=== PATIENT | female | born 1950 | race African-American/Black ===

== ENCOUNTER 2020-08-23 13:32 | Inpatient (IN) | payer OTHER, MEDICARE, MEDICAID ==
[~2020-08-23] VITALS: Ht 162.6 cm; Wt 106.1 kg
[2020-08-23] MEDS ORDERED: SODIUM CHLORIDE 0.9% 1,000 ML IV ONE ×2 (13:45→15:45)
[2020-08-23 14:49] LABS: BASOPHILS % 0.6 % (0.0-2.0); EOSINOPHILS % 3.4 % (0.0-5.0); HEMATOCRIT. 30.3 % (36.0-48.0); HEMOGLOBIN. 9.8 g/dL (12.0-16.0); LYMPHOCYTES % 9.8 % (20.0-50.0); MEAN CORPUSCULAR HEMOGLOBIN 27.1 pg (28.0-32.0); MEAN PLATELET VOLUME 9.6 fl (7.4-10.4); MONOCYTES % 8.1 % (2.0-8.0); NEUTROPHILS % 78.1 % (40.0-76.0); PLATELET 95 x1000/uL (130-400); RED BLOOD CELL COUNT 3.61 mill/uL (4.2-5.4); RED CELL DISTRIBUTION WIDTH 18.4 % (11.6-14.6)
[2020-08-23 14:58] LABS: INR 1.2; PROTHROMBIN TIME 12.9 sec (9.6-11.0)
[2020-08-23 14:59] LABS: CLARITY URINE CLEAR (CLEAR); COLOR URINE YELLOW (YELLOW); KETONES URINE NEGATIVE (NEGATIVE); LEUKOCYTE ESTERASE URINE 2+ (NEGATIVE); NITRITE URINE NEGATIVE (NEGATIVE); OCCULT BLOOD URINE NEGATIVE (NEGATIVE); PROTEIN URINE NEGATIVE (NEGATIVE); SPECIFIC GRAVITY URINE 1.021 (1.005-1.030); UROBILINOGEN URINE 0.2 E.U./dL (0.2-1.0)
[2020-08-23 15:03] LABS: CHLORIDE 114 mEq/L (98-107)
[2020-08-23] MEDS ORDERED: CEFTRIAXONE 1 G PREMIX 50 ML IV ONE (15:45)
[2020-08-23] MEDS ORDERED: GUAIFENESIN 200MG/10ML SUGAR FREE UDC PO PRN (18:45)
[2020-08-23] MEDS ORDERED: CLONIDINE 0.1MG TABLET PO PRN (18:45)
[2020-08-23] MEDS ORDERED: IPRATROPIUM/ALBUTEROL 0.5-3(2.5)MG/3ML NEB HHN PRN (18:45)
[2020-08-23] MEDS ORDERED: DOCUSATE SODIUM 100MG CAPSULE PO PRN (18:45)
[2020-08-23] MEDS ORDERED: MAGNESIUM/ALUMINUM HYDROXIDE/SIMETHICONE 30ML UDC PO PRN (18:45)
[2020-08-23] MEDS ORDERED: HYDROCODONE/ACETAMINOPHEN 5/325MG TABLET PO PRN (18:45)
[2020-08-23] MEDS ORDERED: ONDANSETRON HCL 4MG/2ML INJ IV PRN (18:45)
[2020-08-23] MEDS ORDERED: ENOXAPARIN 40MG/0.4ML SYR SUBCUT SCH (21:00)
[2020-08-23] MEDS: DEXTROSE 5% WATER 1,000 ML IV SCH (23:44)
[2020-08-23] MEDS: PIPERACILLIN/TAZ 3.375G PREMIX 50 ML IV SCH (23:44)
[2020-08-23] MEDS ORDERED: ENOXAPARIN 100MG/ML SYR SUBCUT SCH (23:45)
[2020-08-24] MEDS: PIPERACILLIN/TAZ 3.375G PREMIX 50 ML IV SCH ×3 (02:00→15:13)
[2020-08-24] MEDS: HYDROMORPHONE HCL/PF 2MG/ML CPJ IV PRN ×4 (02:20→18:21)
[2020-08-24 04:01] LABS: CHLORIDE 116 mEq/L (98-107)
[2020-08-24 04:06] LABS: BASOPHILS % 0.5 % (0.0-2.0); EOSINOPHILS % 3.6 % (0.0-5.0); HEMATOCRIT. 27.1 % (36.0-48.0); HEMOGLOBIN. 8.6 g/dL (12.0-16.0); LYMPHOCYTES % 12.9 % (20.0-50.0); MEAN CORPUSCULAR HEMOGLOBIN 26.8 pg (28.0-32.0); MEAN PLATELET VOLUME 9.2 fl (7.4-10.4); PLATELET 92 x1000/uL (130-400); RED BLOOD CELL COUNT 3.19 mill/uL (4.2-5.4); RED CELL DISTRIBUTION WIDTH 18.2 % (11.6-14.6)
[2020-08-24 04:10] LABS: LDL CHOLESTEROL 101 mg/dL (5-100)
[2020-08-24 04:11] LABS: HDL CHOLESTEROL 42 mg/dL (40-59)
[2020-08-24] MEDS: DEXTROSE 5% WATER 1,000 ML IV SCH ×2 (08:06→20:48)
[2020-08-24] MEDS: ENOXAPARIN 120MG/0.8ML SYR SUBCUT SCH ×2 (11:00→12:29)
[2020-08-24 11:30] VITALS: BP 144/53
[2020-08-24 16:26] VITALS: BP 118/55
[2020-08-24 16:33] VITALS: BP 149/53
[2020-08-24] MEDS ORDERED: PREG200C PO (17:29)
[2020-08-24] MEDS ORDERED: OSIM80TA PO (17:29)
[2020-08-24] MEDS ORDERED: HYDR-4135 MT (17:29)
[2020-08-24] MEDS ORDERED: DIAZ10TA4 PO (17:29)
[2020-08-24] MEDS ORDERED: PANT40TA51 PO (17:29)
[2020-08-24] MEDS ORDERED: TRIA1TAB92 PO (17:29)
[2020-08-24] MEDS ORDERED: METO25TA6 PO (17:29)
[2020-08-24 20:00] VITALS: BP 135/66
[2020-08-24] MEDS: PIPERACILLIN/TAZOBACTAM 3.375 G in DEXT 5% WATER 100 ML IV SCH (20:46)
[2020-08-24] MEDS: HYDRALAZINE HCL 50MG TABLET PO SCH (21:03)
[2020-08-25] VITALS: BP 131/68
[2020-08-25] MEDS: HYDROMORPHONE HCL/PF 2MG/ML CPJ IV PRN ×5 (01:39→21:46)
[2020-08-25] MEDS: PIPERACILLIN/TAZOBACTAM 3.375 G in DEXT 5% WATER 100 ML IV SCH ×4 (02:00→20:26)
[2020-08-25 03:06] VITALS: BP_SYST 141
[2020-08-25] MEDS: HYDRALAZINE HCL 50MG TABLET PO SCH ×3 (05:56→21:45)
[2020-08-25 07:28] LABS: BASOPHILS % 0.4 % (0.0-2.0); EOSINOPHILS % 4.1 % (0.0-5.0); HEMATOCRIT. 26.1 % (36.0-48.0); HEMOGLOBIN. 8.5 g/dL (12.0-16.0); LYMPHOCYTES % 14.7 % (20.0-50.0); MEAN CORPUSCULAR HEMOGLOBIN 27.1 pg (28.0-32.0); MEAN PLATELET VOLUME 9.7 fl (7.4-10.4); MONOCYTES % 9.7 % (2.0-8.0); NEUTROPHILS % 71.1 % (40.0-76.0); PLATELET 82 x1000/uL (130-400); RED BLOOD CELL COUNT 3.14 mill/uL (4.2-5.4); RED CELL DISTRIBUTION WIDTH 18.1 % (11.6-14.6)
[2020-08-25 08:17] VITALS: BP 114/73
[2020-08-25] MEDS: PANTOPRAZOLE 40MG DR TABLET PO SCH (09:35)
[2020-08-25] MEDS: METOPROLOL TARTRATE 25MG TABLET PO SCH (09:35)
[2020-08-25] MEDS: TRIAMTERENE/HYDROCHLOROTHIAZID 75/50MG TABLET PO SCH (09:36)
[2020-08-25] MEDS: DEXTROSE 5% WATER 1,000 ML IV SCH (11:21)
[2020-08-25] MEDS ORDERED: POTASSIUM CHLORIDE 20MEQ TABLET SR PO NR (12:00)
[2020-08-25 12:07] VITALS: BP 130/57
[2020-08-25] MEDS ORDERED: IOHEXOL-350 100 ML BOTTLE ONE (14:43)
[2020-08-25 16:22] VITALS: BP 114/60
[2020-08-25 20:00] VITALS: BP 131/62
[2020-08-26] VITALS: BP 113/54
[2020-08-26] MEDS: DEXTROSE 5% WATER 1,000 ML IV SCH ×2 (00:05→13:57)
[2020-08-26] MEDS: HYDROMORPHONE HCL/PF 2MG/ML CPJ IV PRN ×5 (02:48→20:36)
[2020-08-26] MEDS: PIPERACILLIN/TAZOBACTAM 3.375 G in DEXT 5% WATER 100 ML IV SCH ×4 (02:50→20:37)
[2020-08-26 04:00] VITALS: BP 124/56
[2020-08-26] MEDS: HYDRALAZINE HCL 50MG TABLET PO SCH ×3 (06:09→21:06)
[2020-08-26 07:07] LABS: BASOPHILS % 0.2 % (0.0-2.0); EOSINOPHILS % 5.2 % (0.0-5.0); HEMATOCRIT. 27.1 % (36.0-48.0); HEMOGLOBIN. 8.9 g/dL (12.0-16.0); LYMPHOCYTES % 17.5 % (20.0-50.0); MEAN CORPUSCULAR HEMOGLOBIN 27.1 pg (28.0-32.0); MEAN CORPUSCULAR VOLUME 82.8 fL (81.0-99.0); MEAN PLATELET VOLUME 9.6 fl (7.4-10.4); MONOCYTES % 9.4 % (2.0-8.0); NEUTROPHILS % 67.7 % (40.0-76.0); PLATELET 91 x1000/uL (130-400); RED BLOOD CELL COUNT 3.28 mill/uL (4.2-5.4); RED CELL DISTRIBUTION WIDTH 18.1 % (11.6-14.6)
[2020-08-26 07:54] LABS: CHLORIDE 108 mEq/L (98-107)
[2020-08-26 08:00] VITALS: BP 127/60
[2020-08-26] MEDS: PANTOPRAZOLE 40MG DR TABLET PO SCH (09:24)
[2020-08-26] MEDS: TRIAMTERENE/HYDROCHLOROTHIAZID 75/50MG TABLET PO SCH (09:24)
[2020-08-26] MEDS: METOPROLOL TARTRATE 25MG TABLET PO SCH (09:24)
[2020-08-26 12:00] VITALS: BP 147/80
[2020-08-26] MEDS ORDERED: POTASSIUM CHLORIDE 20MEQ TABLET SR PO NR (15:45)
[2020-08-26 16:00] VITALS: BP 153/85
[2020-08-26 20:00] VITALS: BP 131/68
[2020-08-27] VITALS: BP 122/61
[2020-08-27] MEDS: PIPERACILLIN/TAZOBACTAM 3.375 G in DEXT 5% WATER 100 ML IV SCH ×4 (03:18→20:59)
[2020-08-27] MEDS: DEXTROSE 5% WATER 1,000 ML IV SCH ×2 (03:18→17:35)
[2020-08-27 04:00] VITALS: BP 112/66
[2020-08-27] MEDS: HYDROMORPHONE HCL/PF 2MG/ML CPJ IV PRN ×5 (05:45→22:35)
[2020-08-27] MEDS: HYDRALAZINE HCL 50MG TABLET PO SCH ×3 (05:45→21:00)
[2020-08-27 08:00] VITALS: BP 129/77
[2020-08-27] MEDS: TRIAMTERENE/HYDROCHLOROTHIAZID 75/50MG TABLET PO SCH (08:29)
[2020-08-27] MEDS: PANTOPRAZOLE 40MG DR TABLET PO SCH (08:30)
[2020-08-27] MEDS: METOPROLOL TARTRATE 25MG TABLET PO SCH (08:30)
[2020-08-27] MEDS: APIXABAN 5 MG TABLET PO SCH ×2 (10:31→17:31)
[2020-08-27 12:00] VITALS: BP 151/87
[2020-08-27 16:00] VITALS: BP 108/52
[2020-08-27 20:00] VITALS: BP 122/66
[2020-08-27] MEDS: IPRATROPIUM/ALBUTEROL 0.5-3(2.5)MG/3ML NEB HHN SCH (21:18)
[2020-08-28] VITALS: BP 134/68
[2020-08-28] MEDS: HYDROMORPHONE HCL/PF 2MG/ML CPJ IV PRN ×4 (02:10→21:25)
[2020-08-28] MEDS: IPRATROPIUM/ALBUTEROL 0.5-3(2.5)MG/3ML NEB HHN SCH ×4 (02:59→21:10)
[2020-08-28] MEDS: PIPERACILLIN/TAZOBACTAM 3.375 G in DEXT 5% WATER 100 ML IV SCH ×3 (03:09→15:03)
[2020-08-28 04:00] VITALS: BP 120/55
[2020-08-28] MEDS: HYDRALAZINE HCL 50MG TABLET PO SCH ×3 (06:14→21:25)
[2020-08-28] MEDS: DEXTROSE 5% WATER 1,000 ML IV SCH ×2 (06:14→19:05)
[2020-08-28 08:04] VITALS: BP 120/51
[2020-08-28] MEDS: METOPROLOL TARTRATE 25MG TABLET PO SCH (10:33)
[2020-08-28] MEDS: PANTOPRAZOLE 40MG DR TABLET PO SCH (10:34)
[2020-08-28] MEDS: TRIAMTERENE/HYDROCHLOROTHIAZID 75/50MG TABLET PO SCH (10:34)
[2020-08-28] MEDS: APIXABAN 5 MG TABLET PO SCH ×2 (10:35→17:33)
[2020-08-28 11:45] VITALS: BP 120/63
[2020-08-28] MEDS: POTASSIUM CHLORIDE 20MEQ TABLET SR PO SCH ×2 (12:52→17:33)
[2020-08-28 15:19] VITALS: BP 107/71
[2020-08-28 20:00] VITALS: BP 102/47
[2020-08-28] MEDS ORDERED: HYDROMORPHONE HCL/PF 2MG/ML CPJ IV PRN (20:30)
[2020-08-29] VITALS: BP 153/88
[2020-08-29] MEDS: IPRATROPIUM/ALBUTEROL 0.5-3(2.5)MG/3ML NEB HHN SCH ×3 (01:55→12:00)
[2020-08-29] MEDS: HYDROMORPHONE HCL/PF 2MG/ML CPJ IV PRN ×5 (03:30→23:44)
[2020-08-29 04:00] VITALS: BP 116/50
[2020-08-29] MEDS: HYDRALAZINE HCL 50MG TABLET PO SCH ×3 (06:18→21:02)
[2020-08-29 07:26] LABS: CHLORIDE 106 mEq/L (98-107)
[2020-08-29 07:50] LABS: FOLIC ACID (FOLATE) SERUM 5.5 ng/mL (>5.38)
[2020-08-29 08:00] VITALS: BP 122/56
[2020-08-29] MEDS: POTASSIUM CHLORIDE 20MEQ TABLET SR PO SCH ×2 (08:03→17:17)
[2020-08-29] MEDS: APIXABAN 5 MG TABLET PO SCH ×2 (08:03→17:17)
[2020-08-29] MEDS: PANTOPRAZOLE 40MG DR TABLET PO SCH (08:03)
[2020-08-29] MEDS: DEXTROSE 5% WATER 1,000 ML IV SCH ×2 (08:07→21:02)
[2020-08-29] MEDS: METOPROLOL TARTRATE 25MG TABLET PO SCH (08:19)
[2020-08-29] MEDS: TRIAMTERENE/HYDROCHLOROTHIAZID 75/50MG TABLET PO SCH (08:19)
[2020-08-29 12:00] VITALS: BP 112/57
[2020-08-29] MEDS: CYANOCOBALAMIN 1000MCG/ML VIAL IM SCH (13:29)
[2020-08-29 16:07] VITALS: BP 117/55
[2020-08-29 20:00] VITALS: BP 127/61
[2020-08-29] MEDS: ACETAMINOPHEN 325MG TABLET PO PRN (21:02)
[2020-08-30] VITALS: BP 106/48
[2020-08-30] MEDS: HYDROMORPHONE HCL/PF 2MG/ML CPJ IV PRN ×4 (04:22→18:28)
[2020-08-30 04:30] VITALS: BP 97/48
[2020-08-30] MEDS: HYDRALAZINE HCL 50MG TABLET PO SCH ×3 (05:21→20:41)
[2020-08-30 06:44] LABS: CHLORIDE 106 mEq/L (98-107)
[2020-08-30 08:07] VITALS: BP 113/55
[2020-08-30] MEDS: APIXABAN 5 MG TABLET PO SCH ×2 (08:42→18:27)
[2020-08-30] MEDS: CYANOCOBALAMIN 1000MCG/ML VIAL IM SCH (08:43)
[2020-08-30] MEDS: PANTOPRAZOLE 40MG DR TABLET PO SCH (08:43)
[2020-08-30] MEDS: POTASSIUM CHLORIDE 20MEQ TABLET SR PO SCH ×2 (08:43→18:27)
[2020-08-30] MEDS: TRIAMTERENE/HYDROCHLOROTHIAZID 75/50MG TABLET PO SCH (08:43)
[2020-08-30] MEDS: METOPROLOL TARTRATE 25MG TABLET PO SCH (08:45)
[2020-08-30] MEDS: DEXTROSE 5% WATER 1,000 ML IV SCH (08:58)
[2020-08-30 12:24] VITALS: BP 113/59
[2020-08-30 16:14] VITALS: BP 118/56
[2020-08-30 20:15] VITALS: BP 109/56
[2020-08-30] MEDS: ATORVASTATIN CALCIUM 20MG TABLET PO SCH (20:41)
[2020-08-31] VITALS: BP 142/89
[2020-08-31] MEDS: HYDROMORPHONE HCL/PF 2MG/ML CPJ IV PRN ×5 (03:42→23:57)
[2020-08-31 04:30] VITALS: BP_SYST 111; BP_SYST 145; BP_DIAS 68; BP_DIAS 73
[2020-08-31] MEDS: HYDRALAZINE HCL 50MG TABLET PO SCH ×3 (05:09→21:03)
[2020-08-31 08:00] VITALS: BP 126/52
[2020-08-31] MEDS: PANTOPRAZOLE 40MG DR TABLET PO SCH (08:40)
[2020-08-31] MEDS: METOPROLOL TARTRATE 25MG TABLET PO SCH (08:40)
[2020-08-31] MEDS: TRIAMTERENE/HYDROCHLOROTHIAZID 75/50MG TABLET PO SCH (08:52)
[2020-08-31] MEDS: POTASSIUM CHLORIDE 20MEQ TABLET SR PO SCH ×2 (08:52→16:44)
[2020-08-31] MEDS: APIXABAN 5 MG TABLET PO SCH ×2 (08:53→16:44)
[2020-08-31] MEDS: CYANOCOBALAMIN 1000MCG/ML VIAL IM SCH (08:54)
[2020-08-31 12:00] VITALS: BP 126/52
[2020-08-31 16:00] VITALS: BP 120/56
[2020-08-31 20:12] VITALS: BP 131/52
[2020-08-31] MEDS: ATORVASTATIN CALCIUM 20MG TABLET PO SCH (21:03)
[2020-09-01] VITALS: BP 120/57
[2020-09-01] MEDS: HYDROMORPHONE HCL/PF 2MG/ML CPJ IV PRN ×3 (03:48→20:58)
[2020-09-01 04:00] VITALS: BP 129/73
[2020-09-01] MEDS: HYDRALAZINE HCL 50MG TABLET PO SCH ×3 (05:04→21:02)
[2020-09-01 08:00] VITALS: BP 123/54
[2020-09-01] MEDS: TRIAMTERENE/HYDROCHLOROTHIAZID 75/50MG TABLET PO SCH (08:53)
[2020-09-01] MEDS: APIXABAN 5 MG TABLET PO SCH ×2 (08:53→16:18)
[2020-09-01] MEDS: CYANOCOBALAMIN 1000MCG/ML VIAL IM SCH (08:54)
[2020-09-01] MEDS: PANTOPRAZOLE 40MG DR TABLET PO SCH (08:54)
[2020-09-01] MEDS: METOPROLOL TARTRATE 25MG TABLET PO SCH (08:54)
[2020-09-01] MEDS: POTASSIUM CHLORIDE 20MEQ TABLET SR PO SCH ×2 (08:54→16:18)
[2020-09-01 12:30] VITALS: BP 105/61
[2020-09-01 16:00] VITALS: BP 121/65
[2020-09-01] MEDS: TRAMADOL 50MG TABLET PO PRN (16:18)
[2020-09-01 20:00] VITALS: BP 119/55
[2020-09-01] MEDS: ATORVASTATIN CALCIUM 20MG TABLET PO SCH (21:02)
[2020-09-02] VITALS: BP 109/60
[2020-09-02] MEDS: HYDROMORPHONE HCL/PF 2MG/ML CPJ IV PRN ×3 (01:45→20:12)
[2020-09-02 04:00] VITALS: BP 115/62
[2020-09-02] MEDS: HYDRALAZINE HCL 50MG TABLET PO SCH ×3 (05:56→21:48)
[2020-09-02 08:03] VITALS: BP 97/52
[2020-09-02] MEDS: TRIAMTERENE/HYDROCHLOROTHIAZID 75/50MG TABLET PO SCH (09:00)
[2020-09-02] MEDS: METOPROLOL TARTRATE 25MG TABLET PO SCH (09:00)
[2020-09-02] MEDS: CYANOCOBALAMIN 1000MCG/ML VIAL IM SCH (09:17)
[2020-09-02] MEDS: ACETAMINOPHEN 325MG TABLET PO PRN ×2 (09:18→16:35)
[2020-09-02] MEDS: APIXABAN 5 MG TABLET PO SCH ×2 (09:18→16:34)
[2020-09-02] MEDS: PANTOPRAZOLE 40MG DR TABLET PO SCH (09:18)
[2020-09-02] MEDS: POTASSIUM CHLORIDE 20MEQ TABLET SR PO SCH ×2 (09:19→16:34)
[2020-09-02 12:15] VITALS: BP 107/50
[2020-09-02 16:15] VITALS: BP 96/63
[2020-09-02 20:00] VITALS: BP 101/57
[2020-09-02] MEDS: ATORVASTATIN CALCIUM 20MG TABLET PO SCH (20:08)
[2020-09-03] VITALS: BP 115/56
[2020-09-03] MEDS ORDERED: HYDROMORPHONE HCL/PF 2MG/ML CPJ IV PRN (02:15)
[2020-09-03 04:00] VITALS: BP 145/58
[2020-09-03] MEDS: HYDRALAZINE HCL 50MG TABLET PO SCH ×3 (05:44→21:21)
[2020-09-03] MEDS: IPRATROPIUM/ALBUTEROL 0.5-3(2.5)MG/3ML NEB HHN SCH ×2 (07:46→20:07)
[2020-09-03 08:11] VITALS: BP 106/48
[2020-09-03] MEDS: METOPROLOL TARTRATE 25MG TABLET PO SCH (08:56)
[2020-09-03] MEDS: TRIAMTERENE/HYDROCHLOROTHIAZID 75/50MG TABLET PO SCH (08:56)
[2020-09-03] MEDS: TRAMADOL 50MG TABLET PO PRN (08:56)
[2020-09-03] MEDS: APIXABAN 5 MG TABLET PO SCH ×2 (08:57→17:37)
[2020-09-03] MEDS: CYANOCOBALAMIN 1000MCG/ML VIAL IM SCH (08:57)
[2020-09-03] MEDS: PANTOPRAZOLE 40MG DR TABLET PO SCH (09:12)
[2020-09-03] MEDS: POTASSIUM CHLORIDE 20MEQ TABLET SR PO SCH ×2 (09:17→18:01)
[2020-09-03] MEDS: HYDROMORPHONE HCL/PF 2MG/ML CPJ IV PRN ×2 (11:30→21:22)
[2020-09-03 12:03] VITALS: BP 112/51
[2020-09-03 16:09] VITALS: BP 116/67
[2020-09-03] MEDS: DOCUSATE SODIUM 100MG CAPSULE PO SCH (17:00)
[2020-09-03 17:09] LABS: 25-HYDROXY VITAMIN D3 27 ng/mL (.)
[2020-09-03 20:00] VITALS: BP 138/76
[2020-09-03] MEDS: POLYETHYLENE GLYCOL 3350 (17GM) 1 DOSE PACK PO SCH (21:00)
[2020-09-03] MEDS: ATORVASTATIN CALCIUM 20MG TABLET PO SCH (21:22)
[2020-09-04] VITALS: BP 104/51
[2020-09-04] MEDS: IPRATROPIUM/ALBUTEROL 0.5-3(2.5)MG/3ML NEB HHN SCH ×3 (01:55→20:20)
[2020-09-04] MEDS: HYDROMORPHONE HCL/PF 2MG/ML CPJ IV PRN ×5 (03:21→22:57)
[2020-09-04 04:00] VITALS: BP 108/49
[2020-09-04] MEDS: HYDRALAZINE HCL 50MG TABLET PO SCH ×3 (06:00→21:46)
[2020-09-04 07:02] LABS: BASOPHILS % 0.4 % (0.0-2.0); EOSINOPHILS % 3.2 % (0.0-5.0); HEMATOCRIT. 28.6 % (36.0-48.0); HEMOGLOBIN. 9.1 g/dL (12.0-16.0); LYMPHOCYTES % 17.2 % (20.0-50.0); MEAN CORPUSCULAR HEMOGLOBIN 26.7 pg (28.0-32.0); MEAN PLATELET VOLUME 8.2 fl (7.4-10.4); MONOCYTES % 9.6 % (2.0-8.0); NEUTROPHILS % 69.6 % (40.0-76.0); PLATELET 163 x1000/uL (130-400); RED BLOOD CELL COUNT 3.41 mill/uL (4.2-5.4); RED CELL DISTRIBUTION WIDTH 18.9 % (11.6-14.6)
[2020-09-04 08:00] VITALS: BP 110/54
[2020-09-04] MEDS: APIXABAN 5 MG TABLET PO SCH ×2 (08:14→16:56)
[2020-09-04] MEDS: METOPROLOL TARTRATE 25MG TABLET PO SCH (08:14)
[2020-09-04] MEDS: CYANOCOBALAMIN 1000MCG/ML VIAL IM SCH (08:14)
[2020-09-04] MEDS: PANTOPRAZOLE 40MG DR TABLET PO SCH (08:15)
[2020-09-04] MEDS: POTASSIUM CHLORIDE 20MEQ TABLET SR PO SCH ×2 (08:15→16:56)
[2020-09-04] MEDS: DOCUSATE SODIUM 100MG CAPSULE PO SCH ×2 (08:16→16:57)
[2020-09-04] MEDS: TRIAMTERENE/HYDROCHLOROTHIAZID 75/50MG TABLET PO SCH (08:16)
[2020-09-04 12:00] VITALS: BP 110/60
[2020-09-04] MEDS ORDERED: ERGOCALCIFEROL 50000UNITS CAPSULE PO SCH (15:00)
[2020-09-04 16:00] VITALS: BP 114/70
[2020-09-04 20:00] VITALS: BP 103/52
[2020-09-04] MEDS: POLYETHYLENE GLYCOL 3350 (17GM) 1 DOSE PACK PO SCH (21:00)
[2020-09-04] MEDS: ATORVASTATIN CALCIUM 20MG TABLET PO SCH (21:51)
[2020-09-05] VITALS: BP 101/51
[2020-09-05] MEDS: IPRATROPIUM/ALBUTEROL 0.5-3(2.5)MG/3ML NEB HHN SCH ×2 (01:00→06:00)
[2020-09-05 04:00] VITALS: BP 110/54
[2020-09-05] MEDS: HYDRALAZINE HCL 50MG TABLET PO SCH (05:28)
[2020-09-05] MEDS: HYDROMORPHONE HCL/PF 2MG/ML CPJ IV PRN ×2 (05:34→10:45)
[2020-09-05 08:30] VITALS: BP 99/45
[2020-09-05] MEDS: POTASSIUM CHLORIDE 20MEQ TABLET SR PO SCH (08:36)
[2020-09-05] MEDS: DOCUSATE SODIUM 100MG CAPSULE PO SCH (08:36)
[2020-09-05] MEDS: APIXABAN 5 MG TABLET PO SCH (08:36)
[2020-09-05] MEDS: PANTOPRAZOLE 40MG DR TABLET PO SCH (08:36)
[2020-09-05] MEDS: METOPROLOL TARTRATE 25MG TABLET PO SCH (08:36)
[2020-09-05 11:04] VITALS: BP 99/45
[2020-09-05 12:00] VITALS: BP 122/52
[2020-09-11] MEDS ORDERED: CYANOCOBALAMIN 1000MCG/ML VIAL IM SCH (08:45)
== END 2020-09-05 13:28 | DRG 205 ==
LOC: ER 13:49 → MICUSO 18:05 → EDBEDREQ 18:10 → 6WST 08-24 09:49
PROVIDERS: ADMIT Hospitalist; ATTEND Hospitalist
DX: J98.11 Atelectasis (principal); J96.00 Acute respiratory failure, unspecified whether with hypoxia or hypercapnia; E87.0 Hyperosmolality and hypernatremia; N39.0 Urinary tract infection, site not specified; I31.3 Pericardial effusion (noninflammatory); Z68.41 Body mass index [BMI] 40.0-44.9, adult; D68.69 Other thrombophilia; E87.1 Hypo-osmolality and hyponatremia; I82.411 Acute embolism and thrombosis of right femoral vein; I82.431 Acute embolism and thrombosis of right popliteal vein; E86.0 Dehydration; G40.909 Epilepsy, unspecified, not intractable, without status epilepticus; E66.9 Obesity, unspecified; I10 Essential (primary) hypertension; K43.9 Ventral hernia without obstruction or gangrene; D69.6 Thrombocytopenia, unspecified; W18.30XA Fall on same level, unspecified, initial encounter; E78.5 Hyperlipidemia, unspecified; D64.9 Anemia, unspecified; E66.01 Morbid (severe) obesity due to excess calories; M43.16 Spondylolisthesis, lumbar region; M48.061 Spinal stenosis, lumbar region without neurogenic claudication; M47.816 Spondylosis without myelopathy or radiculopathy, lumbar region; E53.8 Deficiency of other specified B group vitamins; M48.02 Spinal stenosis, cervical region; Z85.118 Personal history of other malignant neoplasm of bronchus and lung; Z92.21 Personal history of antineoplastic chemotherapy; Z92.3 Personal history of irradiation; Z79.899 Other long term (current) drug therapy
CPT/HCPCS: 36415; 71045; 71275; 72128; 72131; 72170; 80048; 80053; 80061; 81003; 82306; 82607; 82746; 83735; 83880; 84443; 84484; 85025; 87426; 92523; 92610; 93005; 93970; 94640; 94667; 97110; 97116; 97162; 97164; 97166; 97530; 97535; 99285; A6261; J0696; J1170; J1650; J2543; J3420; J7030; J7060; J7070; Q9967